=== PATIENT | female | born 1980 | race Asian ===

== ENCOUNTER 2021-02-21 09:35 | Observation (INO) ==
[2021-02-16 12:44] LABS: Bilirubin,Urine Negative (Negative); Blood, Urine Moderate mg/dL (Negative); Glucose,Urine (UA) Negative (Negative); Ketones,Urine Negative (Negative); Mucus,Urine Occasional /LPF (Occasional); Nitrite,Urine Negative (Negative); Protein,Urine Negative; RBC,Urine <1 /HPF (0-4); Squamous Epithelial Cell,Urine Occasional /HPF (0-10); Urine Appearance CLEAR (Clear); Urine Color Colorless (Yellow); Urine Specific Gravity 1.005 (1.001-1.035); Urine Urobilinogen < 2.0 EU/DL (0.2-1.0)
[2021-02-16 12:53] LABS: Basophils # 0.1 10*3/uL (0.0-0.2); Basophils % 1.1 % (0.0-0.8); Eosinophils # 0.2 10*3/uL (0.0-0.87); Hematocrit 36.4 VOL% (35.7-47.0); Hemoglobin 11.9 GM/DL (12.0-16.0); Immature Granulocytes % 0.3 %; Immature Granulocytes Absolute 0.02 #; Lymphocytes # 1.9 10*3/uL (1.4-4.0); Lymphocytes % 25.1 % (21.3-54.2); Mean Corpuscular HGB Conc 32.7 GM/DL (32-36); Mean Corpuscular Volume 78.3 FL (87-102); Monocytes % 9.2 % (1.7-12.7); Neutrophils % 62.3 % (38.7-73.9); Platelet Count 388 T/CUMM (130-400); Red Blood Count 4.65 MC/CUMM (3.8-5.5); Red Cell Distribution Width 12.3 % (9.3-17.3); White Blood Count 7.5 T/CUMM (4-12)
[2021-02-16 13:19] LABS: Albumin 3.7 G/DL (3.4-5.0); Bilirubin,Total 1.4 MG/DL (0.2-1.0); Calcium 8.8 MG/DL (8.5-10.1); Osmolality,Calculated 277.3 MOS/KG (273-304); Potassium 3.8 MMOL/L (3.5-5.1); Total Protein 7.4 G/DL (6.4-8.2)
[~2021-02-21 09:35] MED LIST: LACTATED RINGERS 1,000 ML IV SCH
[2021-02-21] MEDS ORDERED: GABAPENTIN 400 MG CAPSULE PO ONE (10:59)
[2021-02-21] MEDS ORDERED: ACETAMINOPHEN 500 MG TABLET PO ONE (10:59)
[2021-02-21] MEDS ORDERED: FAMOTIDINE 20 MG TABLET PO ONE (10:59)
[2021-02-21] MEDS ORDERED: DIAZEPAM 5 MG TABLET PO ONE (10:59)
[2021-02-21] MEDS ORDERED: TISSUE ADHESIVE 1 EACH APPLICATOR TOP ONE (11:21)
[2021-02-21] MEDS ORDERED: DEXAMETHASONE 4 MG/1 ML VIAL ONE (11:56)
[2021-02-21] MEDS ORDERED: propofoL 200 MG/20 ML VIAL IV ONE (11:56)
[2021-02-21] MEDS ORDERED: ROCURONIUM 50 MG/5 ML VIAL IV ONE (11:56)
[2021-02-21] MEDS ORDERED: LIDOCAINE 2% 5 ML VIAL ONE (11:56)
[2021-02-21] MEDS ORDERED: ONDANSETRON 4 MG/2 ML VIAL ONE (11:56)
[2021-02-21] MEDS ORDERED: SEVOFLURANE 1 UNIT/15 MINUTE INH ONE ×7 (11:56→14:18)
[2021-02-21] MEDS ORDERED: fentaNYL 100 MCG/2 ML VIAL ONE (11:57)
[2021-02-21] MEDS ORDERED: MIDAZOLAM 2 MG/2 ML VIAL ONE (11:57)
[2021-02-21] MEDS ORDERED: ePHEDrine 50 MG/ML VIAL ONE (12:17)
[2021-02-21] MEDS ORDERED: GLYCOPYRROLATE 0.4 MG/2 ML VIAL ONE (13:41)
[2021-02-21] MEDS ORDERED: NEOSTIGMINE 10 MG/10 ML VIAL ONE (13:41)
[2021-02-21] MEDS ORDERED: FUROSEMIDE 20 MG/2 ML VIAL ONE (14:18)
[2021-02-21 14:25] LABS: Bilirubin,Urine Negative (Negative); Blood, Urine Negative (Negative); Glucose,Urine (UA) Negative (Negative); Ketones,Urine Negative (Negative); Nitrite,Urine Negative (Negative); Protein,Urine Negative; RBC,Urine 1 /HPF (0-4); Urine Appearance CLEAR (Clear); Urine Color Colorless (Yellow); Urine Specific Gravity 1.004 (1.001-1.035); Urine Urobilinogen < 2.0 EU/DL (0.2-1.0)
[2021-02-21] MEDS ORDERED: ACETAMINOPHEN 325 MG TABLET PO PRN (14:29)
[2021-02-21] MEDS ORDERED: IBUPROFEN 800 MG TABLET PO PRN (14:29)
[2021-02-21] MEDS ORDERED: DOCUSATE SODIUM 100 MG CAPSULE PO PRN (14:29)
[2021-02-21] MEDS ORDERED: MAGNESIUM HYDROXIDE SUSP 30 ML UDCUP PO PRN (14:29)
[2021-02-21] MEDS ORDERED: BISACODYL 10 MG SUPP RECTAL PRN (14:29)
[2021-02-21] MEDS ORDERED: BENZOCAINE/MENTHOL LOZENGE 18/BOX PO PRN (14:29)
[2021-02-21] MEDS ORDERED: ONDANSETRON 4 MG/2 ML VIAL IV PRN ×2 (14:29→15:14)
[2021-02-21] MEDS ORDERED: oxyCODONE/ACETAMINOPHEN 5-325 MG TABLET PO PRN (14:30)
[2021-02-21] MEDS ORDERED: LACTATED RINGERS 1,000 ML IV SCH (14:30)
[2021-02-21] MEDS ORDERED: HYDROmorphone 2 MG/1 ML VIAL IV PRN (15:14)
[2021-02-21] MEDS: KETOROLAC 30 MG/1 ML VIAL IV SCH ×2 (18:02→19:56)
[2021-02-21] MEDS ORDERED: SCOPOLAMINE 1.5 MG PATCH TRANSDERM ONE (20:56)
[2021-02-21] MEDS ORDERED: PROMETHAZINE 25 MG/1 ML VIAL IM PRN (21:25)
[2021-02-22] MEDS ORDERED: ACETAMINOPHEN 500 MG TABLET PO ONE (00:29)
[2021-02-22] MEDS: KETOROLAC 30 MG/1 ML VIAL IV SCH ×2 (02:56→08:33)
[2021-02-22 05:27] LABS: Basophils % 0.2 % (0.0-0.8); Eosinophils % 0.1 % (0.00-10.9); Hematocrit 25.9 VOL% (35.7-47.0); Hemoglobin 8.3 GM/DL (12.0-16.0); Immature Granulocytes % 0.4 %; Immature Granulocytes Absolute 0.05 #; Lymphocytes # 1.6 10*3/uL (1.4-4.0); Lymphocytes % 12.6 % (21.3-54.2); Mean Corpuscular Volume 79.2 FL (87-102); Mean Platelet Volume 9.1 FL (9.6-12.0); Monocytes % 7.9 % (1.7-12.7); Neutrophils % 78.8 % (38.7-73.9); Platelet Count 278 T/CUMM (130-400); Red Blood Count 3.27 MC/CUMM (3.8-5.5); Red Cell Distribution Width 12.5 % (9.3-17.3); White Blood Count 12.4 T/CUMM (4-12)
[2021-02-22 07:08] VITALS: BP 96/58
[2021-02-22] MEDS ORDERED: FERROUS SULFATE 325 MG TABLET PO SCH (09:00)
[2021-02-22] MEDS ORDERED: SIMETHICONE CHEW 80 MG TABLET PO PRN (10:25)
== END 2021-02-22 13:05 | disposition home or self-care (01) ==
LOC: N.OB 09:35 → N.OR 09:35 → N.SDSINP 09:40 → N.OB 15:55
PROVIDERS: ADMIT Obstetrics & Gynecology; ATTEND Obstetrics & Gynecology